=== PATIENT | female | born 1985 | race Caucasian/White ===

== ENCOUNTER 2019-05-04 19:00 | Emergency (ER) | payer SELFPAY ==
--- NOTE | 2019-05-04 19:15 | NUR ---
PT CALLED NO ANSWER IN LOBBY.
--- NOTE | 2019-05-04 19:40 | NUR ---
PT CALLED NO ANSWER IN LOBBY.
--- NOTE | 2019-05-04 19:50 | NUR ---
PATIENT LEFT WITHOUT BEING SEEN BY DR. JESUS. NO FURTHER CARE PROVIDED FOR PATIENT.
== END 2019-05-04 19:15 | disposition left against medical advice (07) ==
LOC: MED 19:00
DX: F41.9 Anxiety disorder, unspecified (principal); Z53.21 Procedure and treatment not carried out due to patient leaving prior to being seen by health care provider